=== PATIENT | female | born 1950 | race Caucasian/White ===

== ENCOUNTER 2019-05-03 07:24 | Emergency (ER) | payer BC ==
[2019-05-03] MEDS ORDERED: ONDANSETRON 4 MG/2 ML VIAL IVP ONE (07:35)
[2019-05-03] MEDS ORDERED: NS(*) 0.9% 1000 ML BAG 1,000 ML IV ONE (07:35)
[2019-05-03] MEDS ORDERED: fentaNYL CITR 100 MCG/2 ML AMP IVP ONE (07:45)
[2019-05-03 07:54] LABS: PLATELET COUNT, AUTOMATED 274 K/uL (150-450)
--- NOTE | 2019-05-03 08:29 | RADIOLOGY IMAGING REPORT ---
FACILITY: [facility] PATIENT NAME: Katty Smith : 1950 MR: [id number] V: [id number] EXAM DATE: ORDERING PHYSICIAN: NILSA TOWNSEND TECHNOLOGIST: Location: [facility] [place] Patient: Katty Smith : 1950 Visit/Account:[id number] Date of Sevice: 05/03/2019 ACUTE ABDOMEN SERIES 3 VIEW INDICATION: Evaluate for small bowel obstruction. COMPARISON: Unavailable FINDINGS: Chest: The heart size is normal. There is no infiltrate in either lung. There is no pneumoperiton eum.. Abdomen: There are no dilated loops of large or small bowel to suggest ileus or obstruction. There is gas and feces in the rectum. IMPRESSION: 1. No acute cardiopulmonary process. 2. Nonspecific bowel gas pattern without findings of ileus or obstruction. Report Dictated By: Leobardo Landis MD at 05/03/2019 8:23 AM Report E-Signed By: Leobardo Landis MD at 05/03/2019 8:25 AM WSN:[id number]
[2019-05-03 08:30] VITALS: BP 110/64
[2019-05-03] MEDS ORDERED: ONDA4TAB9 PO (09:07)
--- NOTE | 2019-05-03 09:07 | ER Report ---
History and Physical Time Seen By MD: 09:03 Hx. of Stated Complaint: PATIENT REPORTS NAUSEA VOMITTING AND ABDOMINAL PAIN SINCE LAST NIGHT. HAS HISTORY OF BOWEL OBSTRUCTIONS IN THE PAST HPI/ROS No BM. less gas, nausea/vomiting starting last night. H/O SBO. Also with moderate amount of pain. No chest pain/SOB. No fever. No trauma. No dysuria/hematuria. Remainder of the 14 system rev: Yes Allergies: Coded Allergies: No Known Drug Allergies (Unverified , 05/03/19) Home Meds Active Scripts Ondansetron 4 Mg Odt (ONDANSETRON 4 MG ODT) 4 Mg Tab.rapdis, 4 MG PO Q4-6H for 4 Days, #12 TAB Prov:HUGO GRACE MD 05/03/19 Reviewed Nurses Notes: Yes Old Medical Records Reviewed: Yes Hx Substance Use Disorder: No Hx Alcohol Use: No Constitutional Physical Exam General Appearance: The patient is alert, has no immediate need for airway protection and no current signs of toxicity. Eyes: Pupils equal and round no injection. Respiratory: Chest is non tender, lungs are clear to auscultation. Cardiac: regular rate and rhythm Gastrointestinal: Abdomen is soft with diffuse TTP, no masses, bowel sounds normal. Extremities have full range of motion and are non tender. Skin: No rashes or lesions. DIFFERENTIAL DIAGNOSIS: After history and physical exam differential diagnosis was considered for abdominal pain including but not limited to appendicitis, cholecystitis, gastritis and urinary tract infection. Medical Decision Making Data Points Laboratory Hematology Test 05/03/19 07:38 Red Blood Count 4.30 M/uL (4.17-5.56) Mean Corpuscular Volume 91.3 fL (80.0-96.0) Mean Corpuscular Hemoglobin 30.7 pg (26.0-33.0) Mean Corpuscular Hemoglobin Concent 33.7 g/dL (32.0-36.0) Red Cell Distribution Width 14.7 % (11.5-14.5) Mean Platelet Volume 7.0 fL (7.2-11.1) Neutrophils (%) (Auto) 76.3 % (39.4-72.5) Lymphocytes (%) (Auto) 12.8 % (17.6-49.6) Monocytes (%) (Auto) 8.1 % (4.1-12.4) Eosinophils (%) (Auto) 2.2 % (0.4-6.7) Basophils (%) (Auto) 0.6 % (0.3-1.4) Nucleated RBC Relative Count (auto) 0.0 /100WBC Neutrophils # (Auto) 5.0 K/uL (2.0-7.4) Lymphocytes # (Auto) 0.8 K/uL (1.3-3.6) Monocytes # (Auto) 0.5 K/uL (0.3-1.0) Eosinophils # (Auto) 0.1 K/uL (0.0-0.5) Basophils # (Auto) 0.0 K/uL (0.0-0.1) Nucleated RBC Absolute Count (auto) 0.00 K/uL Sodium Level 137 mmol/L (137-145) Potassium Level 3.7 mmol/L (3.5-5.0) Chloride Level 101 mmol/L (98-107) Carbon Dioxide Level 24 mmol/L (22-31) Blood Urea Nitrogen 24 mg/dl (7-18) Creatinine 1.10 mg/dl (0.52-1.04) Glomerular Filtration Rate Calc 49.7 Random Glucose 107 mg/dl (75-110) Calcium Level 9.8 mg/dl (8.4-10.2) Total Bilirubin 0.6 mg/dl (0.2-1.3) Aspartate Amino Transf (AST/SGOT) 24 U/L (0-35) Alanine Aminotransferase (ALT/SGPT) 30 U/L (0-56) Alkaline Phosphatase 99 U/L (0-126) Total Protein 7.1 g/dl (6.3-8.2) Albumin 4.4 g/dl (3.5-5.0) Amylase Level 60 U/L (0-110) Lipase 59 U/L (23-300) Chemistry Test 05/03/19 07:38 White Blood Count 6.5 k/uL (4.5-11.0) Red Blood Count 4.30 M/uL (4.17-5.56) Hemoglobin 13.2 g/dL (12.0-16.0) Hematocrit 39.2 % (34.0-47.0) Mean Corpuscular Volume 91.3 fL (80.0-96.0) Mean Corpuscular Hemoglobin 30.7 pg (26.0-33.0) Mean Corpuscular Hemoglobin Concent 33.7 g/dL (32.0-36.0) Red Cell Distribution Width 14.7 % (11.5-14.5) Platelet Count 274 K/uL (150-450) Mean Platelet Volume 7.0 fL (7.2-11.1) Neutrophils (%) (Auto) 76.3 % (39.4-72.5) Lymphocytes (%) (Auto) 12.8 % (17.6-49.6) Monocytes (%) (Auto) 8.1 % (4.1-12.4) Eosinophils (%) (Auto) 2.2 % (0.4-6.7) Basophils (%) (Auto) 0.6 % (0.3-1.4) Nucleated RBC Relative Count (auto) 0.0 /100WBC Neutrophils # (Auto) 5.0 K/uL (2.0-7.4) Lymphocytes # (Auto) 0.8 K/uL (1.3-3.6) Monocytes # (Auto) 0.5 K/uL (0.3-1.0) Eosinophils # (Auto) 0.1 K/uL (0.0-0.5) Basophils # (Auto) 0.0 K/uL (0.0-0.1) Nucleated RBC Absolute Count (auto) 0.00 K/uL Glomerular Filtration Rate Calc 49.7 Calcium Level 9.8 mg/dl (8.4-10.2) Total Bilirubin 0.6 mg/dl (0.2-1.3) Aspartate Amino Transf (AST/SGOT) 24 U/L (0-35) Alanine Aminotransferase (ALT/SGPT) 30 U/L (0-56) Alkaline Phosphatase 99 U/L (0-126) Total Protein 7.1 g/dl (6.3-8.2) Albumin 4.4 g/dl (3.5-5.0) Amylase Level 60 U/L (0-110) Lipase 59 U/L (23-300) ED Course/Re-evaluation ED Course Pain improved. Nausea improved and taking PO. No SBO both clinically and by CT scan. No chest pain or need for cardiac workup. Will d/c with anti-nausea meds and PCM follow up Decision to Disposition Date: May 03, 2019 Decision to Disposition Time: 09:03 Depart Departure Latest Vital Signs Impression: Primary Impression: Nausea & vomiting Condition: Improved Disposition: HOME OR SELF-CARE New Scripts Ondansetron 4 Mg Odt (ONDANSETRON 4 MG ODT) 4 Mg Tab.rapdis 4 MG PO Q4-6H for 4 Days, #12 TAB Prov: HUGO GRACE MD 05/03/19 Departure Forms: Medications Reconciliation, Patient Portal Information, ER Transition Record Patient Instructions: Acute Nausea and Vomiting (ED) Problem Qualifiers Primary Impression: Nausea & vomiting Vomiting type: unspecified Vomiting Intractability: non-intractable Qualified Codes: R11.2 - Nausea with vomiting, unspecified HUGO GRACE MD May 03, 2019 09:07
== END 2019-05-03 09:12 | disposition home or self-care (01) ==
LOC: ER 07:57
DX: R11.2 Nausea with vomiting, unspecified (principal)
CPT/HCPCS: 74022; 82150; 83690; 85025; 96361; 96374; 96375; 99284; J2405; J3010; J7030; 82040; 82247; 82310; 82374; 82435; 82565; 82947; 84075; 84132; 84155; 84295; 84450; 84460; 84520